=== PATIENT | female | born 1955 ===

== ENCOUNTER 2018-01-05 13:42 | Emergency (ER) | payer OTHER ==
[~2018-01-05] VITALS: Ht 154.9 cm; Wt 52.6 kg
[~2018-01-05 13:42] MED LIST: AMBIEN10 MG; CARDIZEM60 MG
[2018-01-05] MEDS ORDERED: EFFEXOR XR150 MG (13:56)
[2018-01-05] MEDS ORDERED: PEPCID40 MG (13:57)
[2018-01-05] MEDS ORDERED: PROTONIX40 MG (13:57)
== END 2018-01-05 21:24 | disposition home or self-care (01) ==
LOC: ER 13:42
DX: K59.09 Other constipation (principal); K59.01 Slow transit constipation; K29.61 Other gastritis with bleeding; R10.13 Epigastric pain